=== PATIENT | male | born 1985 | race Caucasian/White ===

== ENCOUNTER 2022-11-22 17:58 | Emergency (ER) | payer SELFPAY ==
[~2022-11-22] VITALS: Ht 180.3 cm; Wt 77.0 kg
[2022-11-22 18:04] VITALS: BP 138/73; RESP 16; TEMP 97.9; O2SAT 99
[2022-11-22 18:05] VITALS: PULSE 78
[2022-11-23] MEDS ORDERED: CEPH500C2 MT (13:20)
[2022-11-23] MEDS ORDERED: SULF1TAB48 MT (13:20)
== END 2022-11-22 20:20 | disposition left against medical advice (07) ==
LOC: ER 17:58
DX: Z53.21 Procedure and treatment not carried out due to patient leaving prior to being seen by health care provider (principal)
CPT/HCPCS: 99281

== ENCOUNTER 2022-11-23 10:56 | Emergency (ER) | payer SELFPAY ==
[~2022-11-23] VITALS: Ht 175.3 cm; Wt 86.0 kg
[2022-11-23 11:06] VITALS: O2SAT 97
[2022-11-23] MEDS ORDERED: LIDOCAINE HCL/EPINEPHRINE 1%-EPI 1:100,000 20 ML VIAL INFIL ONE (12:15)
[2022-11-23] MEDS ORDERED: LIDOCAINE HCL/PF 1% 10 MG/ML 5ML VIAL INFIL ONE (13:00)
[2022-11-23] MEDS ORDERED: CEPH500C2 MT (13:20)
[2022-11-23] MEDS ORDERED: SULF1TAB48 MT (13:20)
[2022-11-23 14:04] VITALS: BP 114/72; PULSE 72; RESP 20; TEMP 98.3
== END 2022-11-23 14:05 | disposition home or self-care (01) ==
LOC: ER 10:56
DX: L02.414 Cutaneous abscess of left upper limb (principal)
CPT/HCPCS: 99284; 10060; J3490; 99283